=== PATIENT | female | born 1970 | race Two or more races ===

== ENCOUNTER 2025-04-18 07:53 | Emergency (ER) | payer MEDICAID, SELFPAY ==
[2025-04-18 07:55] VITALS: BMI 25.6
[2025-04-18 08:01] VITALS: BP 121/85; PULSE 91; RESP 18; TEMP 37.2; O2SAT 97
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
[2025-04-18] MEDS: DiphenhydrAMINE 25 MG CAPSULE 50 MG PO (09:55)
[2025-04-18] MEDS: FAMOTIDINE 20 MG TABLET 40 MG PO (09:55)
[2025-04-18] MEDS: predniSONE 20 MG TABLET 60 MG PO (09:55)
[2025-04-18 10:16] VITALS: BP 140/70; PULSE 99; RESP 18; TEMP 37.1; O2SAT 95
[2025-04-18 12:18] VITALS: BP 126/76; PULSE 86; RESP 20; TEMP 37.3; O2SAT 96
[2025-04-18 13:43] VITALS: BP 136/89; PULSE 78; RESP 16; TEMP 37.2; O2SAT 98
== END 2025-04-18 13:50 | disposition home or self-care (01) ==
PROVIDERS: Emergency Provider Emergency Medicine; PCP Family Medicine
DX: H02.844 Edema of left upper eyelid (principal); H02.841 Edema of right upper eyelid
CPT/HCPCS: 99282; J7512; A9270

== ENCOUNTER 2025-04-22 05:09 | Emergency (ER) | payer MEDICAID, SELFPAY ==
[2025-04-22 05:15] VITALS: BMI 20.3
[2025-04-22 05:34] VITALS: BP 111/64; PULSE 67; RESP 18; TEMP 36.9
--- NOTE | 2025-04-22 05:38 | XR_ITS ---
Examination: Ultrasound soft tissue forehead TECHNIQUE: Grayscale sonographic soft tissue forehead Date and time: April 22, 2025 0724 hours INDICATIONS: Soft tissue swelling involving the forehead FINDINGS: Tubular fluid-filled structure with internal debris in the soft tissue at the area of concern 5.6 x 1.5 x 8.2 cm IMPRESSION: Tubular fluid-filled structure with internal debris in the soft tissue at the area of concern as above, differential would include hematoma, soft tissue abscess, clinical correlation advised
--- NOTE | 2025-04-22 05:39 | EDRME_ITS ---
Rapid Medical Screening Exam [facility] Arrival date/time: 04/22/25 05:09 54F with history of drug use presents to ED with painful swelling/area of fluctuance on head. Patient was here several days ago for this and was diagnosed as an allergic reaction. Chief Complaint: General Adult/Misc Complain Vital signs: Vital Signs Temperature 98.4 F 04/22/25 05:34 Pulse Rate 67 04/22/25 05:34 Respiratory Rate 18 04/22/25 05:34 Blood Pressure 111/64 04/22/25 05:34 Oxygen Delivery Method Room Air 04/22/25 05:34
--- NOTE | 2025-04-22 06:53 | PD.EDRME ---
Rapid Medical Screening Exam RME Arrival date/time: 04/22/25 05:09 04/22/25 05:09 54F with history of drug use presents to ED with painful swelling/area of fluctuance on head. Patient was here several days ago for this and was diagnosed as an allergic reaction. Chief Complaint: General Adult/Misc Complain Time Seen by Provider: 04/22/25 06:13 Vital signs: Vital Signs Temperature 98.4 F 04/22/25 05:34 Pulse Rate 67 04/22/25 05:34 Respiratory Rate 18 04/22/25 05:34 Blood Pressure 111/64 04/22/25 05:34 Oxygen Delivery Method Room Air 04/22/25 05:34 RME Narrative: 04/22/25 05:09 54F with history of drug use presents to ED with painful swelling/area of fluctuance on head. Patient was here several days ago for this and was diagnosed as an allergic reaction.
[2025-04-22 07:41] LABS: Lactate (Lactic Acid) 0.5 mMol/L (0.4-2.0)
[2025-04-22 07:47] LABS: Basophils % (Auto) 0 % (0-2.5); Eosinophils % (Auto) 0 % (0-10); Hematocrit 35.2 % (36.0-46.0); Hemoglobin 12.9 g/dL (12.0-16.0); Immature Granulocytes % (Auto) 0 % (0-0); Immature Granulocytes Auto 0.03 Thou/mm3 (0.00-0.00); Lymphocytes # (Auto) 3.2 Thou/mm3 (1.0-4.8); Lymphocytes % (Auto) 29 % (10-50); Mean Corpuscular HGB Conc 36.6 g/dl (31.0-37.0); Mean Corpuscular Hemoglobin 32.5 pg (25.0-35.0); Mean Corpuscular Volume 89 fL (80-100); Monocytes # (Auto) 1.1 Thou/mm3 (0.0-0.8); Monocytes % (Auto) 10 % (0-12); Neutrophils # (Auto) 6.8 Thou/mm3 (1.8-7.7); Neutrophils % (Auto) 61 % (37-80); Nucleated Red Blood Cell % 0 /100 WBC (0); Platelet Count 236 Thou/mm3 (140-440); Red Blood Count 3.97 Miln/mm3 (4.00-5.20); White Blood Count 11.1 Thou/mm3 (3.6-11.0)
[2025-04-22 08:13] LABS: Alanine Aminotransferase 32 U/L (10-49); Albumin, Serum 4.3 gm/dL (3.5-5.0); Albumin/Globulin Ratio 1.5 (1.2-2.2); Alkaline Phosphatase 89 U/L (46-116); Anion Gap 11 (7-16); BUN/Creatinine Ratio 17 Ratio (12-20); Bilirubin,Total 1.2 mg/dL (0.3-1.2); Blood Urea Nitrogen 15 mg/dL (9-23); C-Reactive Protein 5.5 mg/dL (0.0-0.9); Calcium 9.3 mg/dL (8.3-10.6); Calcium (Corrected) 9.3 mg/dL (8.5-10.1); Carbon Dioxide 26.4 mMol/L (20.0-31.0); Chloride 100 mMol/L (98-107); Creatinine (Component) 0.9 mg/dL (0.6-1.3); Estimated Creatinine Clearance 58.8 mL/min (>60); Globulin 2.8 gm/dL (2.3-3.5); Glucose 93 mg/dL (74-106); Osmolality,Calculated 274 (275-295); Potassium 3.5 mMol/L (3.4-5.1); Procalcitonin 0.22 ng/ml (0.0-0.49); Sodium 137 mMol/L (136-145); Total Protein 7.1 gm/dL (5.7-8.2); eGFR > 60 See Note
[2025-04-22 08:15] LABS: Sed Rate (ESR) 27 mm/hr (0-30)
--- NOTE | 2025-04-22 08:18 | PC.NURSE ---
ACCOUNTS SUPERVISOR ATTEMPTED TO CALL PT BACK TO ASSIGNED ROOM. PT NOT FOUND IN OR OUTSIDE OF LOBBY X1.
[2025-04-22 08:57] LABS: HCG,Qualitative Serum Positive
--- NOTE | 2025-04-22 09:58 | EDNOTE_ITS ---
ED General RME/HPI General Chief complaint: General Adult/Misc Complain Stated complaint: PAIN SWELLING TO FOREHEAD Time Seen by Provider: 04/22/25 06:13 Arrival date/time: 04/22/25 05:09 Limitations: no limitations RME / HPI RME / HPI narrative: 04/22/25 05:09 54F with history of drug use presents to ED with painful swelling/area of fluctuance on head. Patient was here several days ago for this and was diagnosed as an allergic reaction. DR. COX MAIN ED EVALUATION: 54 year old female with past medical history significant for brain surgery at [place] presents to the Emergency Department with complaint of forehead swelling. She was seen on 04/18/25 for the same symptoms and discharged home with an allergic reaction. No other symptoms reported at this time. Related Data Previous Rx's ?Medication ?Instructions ?Recorded docusate sodium 100 mg capsule 100 mg PO TID #30 caps 07/07/23 (Colace) gabapentin 100 mg capsule 100 mg PO TID PRN pain #30 c aps 07/07/23 hydrocortisone 2.5 % topical cream 1 applic AK QDAY AK N hemorrhoids 07/07/23 with perineal applicator #30 grams (Anusol-HC) ibuprofen 600 mg tablet 600 mg PO TID PRN pain #30 t abs 12/13/23 ibuprofen 600 mg tablet 600 mg PO Q6H #30 tabs 12/16 diphenhydramine HCl 25 mg capsule 50 mg (2 x 25 mg) PO TID PRN 04/18/25 (Allergy (diphenhydramine)) allergic reaction #20 caps prednisone 50 mg tablet 50 mg PO QDAY #4 tabs Allergies Allergy/AdvReac Type Severity Reaction Status Date / Time No Known Allergies Allergy Verified 04/22/25 05:28 Review of Systems Review of Systems Systems Reviewed: All systems reviewed, normal except as documented Past Medical History Past Medical History NEUROLOGIC: Positive Head Trauma and Traumatic Brain Injury RESPIRATORY: Positive Asthma ENT: Positive Head Trauma OTHER HISTORY: Positive Blood Transfusions Social History SMOKING STATUS: Never smoker SUBSTANCE USE: does not use ALCOHOL: Never ED Exam General Limitations: Present no limitations General appearance: Present alert and in no apparent distress Head Head exam: Present other (There is a large incision behind the hairline with a big defect on the mid to right forehead area; area feels soft and enoc fluctuates; there is minimal erythema.) Eye Eye exam: Present normal appearance, PERRL and EOMI ENT ENT exam: Present normal exam, normal oropharynx and mucous membranes moist Neck Neck exam: Present normal inspection, full ROM and trachea midline Chest Chest inspection: Present normal inspection and symmetric chest wall rise Respiratory Respiratory exam: Present normal lung sounds bilaterally Cardiovascular Cardiovascular exam: Present regular rate, normal rhythm and normal heart sounds Abdominal Exam Abdominal exam: Present soft and normal bowel sounds Extremities Exam Extremities exam: Present normal inspection and full ROM Back Exam Back exam: Present normal inspection and full ROM Neurological Exam Neurological exam: Present alert, oriented X3 and CN II-XII intact Psychiatric Psychiatric exam: Present normal affect and normal mood Skin Skin exam: Present warm, dry, intact and normal color Course Quality Measures none Orders Category Date Time Status 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 Stat Cons 04/22/25 12:43 Active Transfer to another facility [Transfer/Discharge] Stat Discharge 04/22/25 12:[address] head/brain wo con Stat Exams 04/22/25 10:38 Completed US OB <= 14 weeks fetus Stat Exams 04/22/25 10:55 Completed US pelvic complete Stat Exams 04/22/25 10:45 Ordered US soft tissue head neck Stat Exams 04/22/25 05:38 Completed Beta HCG,Quantitative Stat Lab 04/22/25 07:20 Completed Blood Culture (Lab) Stat Lab 04/22/25 07:10 Received CBC Stat Lab 04/22/25 07:20 Completed CRP [C-Reactive Protein] Stat Lab 04/22/25 07:20 Completed Comprehensive Metabolic Panel Stat Lab 04/22/25 07:20 Completed Drug Screen,Urine Stat Lab 04/22/25 14:32 Completed ESR [Sed Rate (ESR)] Stat Lab 04/22/25 07:20 Completed HCG,Qualitative Serum Stat Lab 04/22/25 07:20 Completed Lactate (Lactic Acid) Stat Lab 04/22/25 07:20 Completed Procalcitonin Stat Lab 04/22/25 07:20 Completed Urinalysis Stat Lab 04/22/25 14:32 Completed Vancomycin/Ns 1 gm Ivpb 200 ml Med 04/22/25 12:55 Discontinued IV X1 cefTRIAXone [Rocephin] 2 gm Med 04/22/25 10:34 Discontinued SODIUM CHLORIDE 0.9% (Popper) [Ns 0.9% (P)] 50 ml IV X1 metroNIDAZOLE/NS 500 MG IVPB [Flagyl 500 mg IV] Med 04/22/25 12:56 Discontinued 500 mg in 100 ml IV X1 Vital Signs Vital signs: Vital Signs Temperature 98.4 F 04/22/25 05:34 Pulse Rate 67 04/22/25 05:34 Respiratory Rate 18 04/22/25 05:34 Blood Pressure 111/64 04/22/25 05:34 Oxygen Delivery Method Room Air 04/22/25 05:34 Critical Care Time Critical Care Time Critical Care Time: Yes Total Critical Care Time (min.): 45 Attestation: The high probability of sudden, clinically significant deterioration in the patient?s condition required the highest level of my preparedness to intervene urgently. The services I provided to this patient were to treat and/or prevent clinically significant deterioration. Services included the following: chart data review, reviewing nursing notes and/or old charts, documentation time, cosmetic sales consultant collaboration regarding findings and treatment options, medication orders and management, direct patient care, vital sign assessments and ordering, interpreting and reviewing diagnostic studies and lab tests. Aggregate critical care time includes only time during which I was engaged in work directly related to the patient?s care, as described above, whether at bedside or elsewhere in the Emergency Department. It did not include time spent performing other reported procedures or the services of residents, students, nurses or physician assistants. Discharge Plan Plan Patient Disposition: [facility] Facility Pt Being Transferred to: Other-Specify in comment Service Needed for Transfer: Neurology Discharge Disposition comment: [facility] Prescriptions/Referrals Prescriptions/Med Rec: No Action ibuprofen 600 mg tablet 600 mg PO TID PRN (Reason: pain) Qty: 30 0RF gabapentin 100 mg capsule 100 mg PO TID PRN (Reason: pain) Qty: 30 0RF docusate sodium [Colace] 100 mg capsule 100 mg PO TID Qty: 30 0RF hydrocortisone [Anusol-HC] 2.5 % cream with perineal applicator 1 applic AK QDAY PRN (Reason: hemorrhoids) Qty: 30 0RF ibuprofen 600 mg tablet 600 mg PO Q6H Qty: 30 0RF prednisone 50 mg tablet 50 mg PO QDAY Qty: 4 0RF diphenhydramine HCl [Allergy (diphenhydramine)] 25 mg capsule 50 mg PO TID PRN (Reason: allergic reaction) Qty: 20 0RF Referrals: Randall Briseno MD [Primary Care Provider] - In 1 week Problem List Clinical Impression: Brain abscess Patient/Caregiver Discharge Instructions Print Language: Vietnamese Stand Alone Forms: Francisca Award Info., Patient Portal Info Letter MDM Narrative [facility] hospital course: I, Ana Odonnell, am scribing for and in the presence of Dr. Cox. Clinical Information Provided by patient Medical Records Reviewed [facility] Meds/Rx Considered, not Ordered None Labs/Rad/Tests considered, not Ordered None Chronic Illness/Social Conditions Add or document further as needed: brain surgery at [place] EKG EKG not done Imaging Radiology reports / interpretation(s): Procedure(s): US soft tissue head neck Accession Number(s): [id number] cc: Randall Briseno MD; Francisco Baltazar MD; Natanael Garduno PA-C~ Examination: Ultrasound soft tissue forehead TECHNIQUE: Grayscale sonographic soft tissue forehead Date and time: April 22, 2025 0724 hours INDICATIONS: Soft tissue swelling involving the forehead FINDINGS: Tubular fluid-filled structure with internal debris in the soft tissue at the area of concern 5.6 x 1.5 x 8.2 cm IMPRESSION: Tubular fluid-filled structure with internal debris in the soft tissue at the area of concern as above, differential would include hematoma, soft tissue abscess, clinical correlation advised Dictated By: Francisco Baltazar MD Procedure(s): US OB <= 14 weeks fetus Accession Number(s): [id number] cc: Tima Cox MD; Randall Briseno MD; Francisco Baltazar MD~ Examination: Complete OB ultrasound, less than 14 weeks, transabdominal Date and time of exam: April 22, 2025 1141 hrs. Indications: Pelvic pain and vaginal bleeding today Technique: Obstetrical ultrasound images less than 14 weeks performed via transabdominal imaging Findings: Uterus 6.0 cm, endometrial sign 0.7 cm No uterine mass or intrauterine gestation Right ovary 2.6 cm arterial flow. Left ovary 2.3 cm arterial flow Impression: Negative examination Dictated By: Francisco Baltazar MD ------- Procedure(s): CT head/brain wo con Accession Number(s): [id number] cc: Tima Cox MD; Randall Briseno MD; Francisco Baltazar MD~ Examination: CT brain head without contrast. 2-D sagittal coronal reconstructions Date and time of exam:April 22, 2025 1116 hrs. Comparison November 25, 2017 CTDI: vol (mGy):47 DLP: (mGycm):955 Indications: Head pain forehead swelling 2 weeks Technique: Multiple CT axial sections of the brain have been obtained, 5 mm slice thickness. Contrast has not been administered. 2-D sagittal, coronal reconstructions have been obtained Low dose protocols were performed. One or more of the following dose reduction techniques were used; automated exposure control, adjustment of the mA and/or KV according to patient size, use of iterative reconstruction technique. Findings: Again noted large frontal craniotomy defect with prominent left frontal encephalomalacia and ipsilateral ventricular dilatation There now is extra-axial space anterior to the frontal lobes is on this study, axial image 22, measuring up to 17 mm in thickness with fluid density Acute hemorrhage is not identified No midline shift Also soft tissue swelling anterior to the craniotomy defect Impression: Findings most consistent with fluid infection at the frontal craniotomy defect contiguous with the frontal horns with associated forehead soft tissue swelling Recommend immediate transfer to the surgical Hospital site where the patient surgery was performed for treatment of this probable extra-axial abscess Dictated By: Francisco Baltazar MD Medication Administration(s) Medication Administration History Discontinued Medications Ceftriaxone Sodium 2 gm/ (Sodium Chloride) 50 mls @ 100 mls/hr IV X1 ONE Stop: 04/22/25 11:03 Last Infusion: 04/22/25 13:36 Dose: Infused Documented By: Admin: 04/22/25 13:06 Dose: 100 mls/hr Documented By: EF Vancomycin/Sodium Chloride (Vancomycin/Ns 1 Gm Ivpb) 200 mls @ 120 mls/hr IV X1 ONE Stop: 04/22/25 14:34 Last Infusion: 04/22/25 15:21 Dose: Infused Documented By: Admin: 04/22/25 13:40 Dose: 120 mls/hr Documented By: EF Metronidazole (Flagyl 500 Mg Iv) 500 mg in 100 mls @ 100 mls/hr IV X1 ONE Stop: 04/22/25 13:55 Last Infusion: 04/22/25 14:40 Dose: Infused Documented By: Admin: 04/22/25 13:40 Dose: 100 mls/hr Documented By: EF Consultations/Discussions re: Management Consult #1: Date/time: 04/22/25 4:26 pm Physician, specialty, service, details: Discussed test HPI, PMHx, lab, radiology results and/or management with [facility].Accepts patient for transfer. Diagnosis Differential diagnosis: allergic reaction, cellulitis, edema Most likely dx, and/or detailed dx discussion: Brain abscess Dispositon Disposition: Transfer Disposition comments: [facility]
--- NOTE | 2025-04-22 10:38 | XR_ITS ---
Examination: CT brain head without contrast. 2-D sagittal coronal reconstructions Date and time of exam:April 22, 2025 1116 hrs. Comparison November 25, 2017 CTDI: vol (mGy):47 DLP: (mGycm):955 Indications: Head pain forehead swelling 2 weeks Technique: Multiple CT axial sections of the brain have been obtained, 5 mm slice thickness. Contrast has not been administered. 2-D sagittal, coronal reconstructions have been obtained Low dose protocols were performed. One or more of the following dose reduction techniques were used; automated exposure control, adjustment of the mA and/or KV according to patient size, use of iterative reconstruction technique. Findings: Again noted large frontal craniotomy defect with prominent left frontal encephalomalacia and ipsilateral ventricular dilatation There now is extra-axial space anterior to the frontal lobes is on this study, axial image 22, measuring up to 17 mm in thickness with fluid density Acute hemorrhage is not identified No midline shift Also soft tissue swelling anterior to the craniotomy defect Impression: Findings most consistent with fluid infection at the frontal craniotomy defect contiguous with the frontal horns with associated forehead soft tissue swelling Recommend immediate transfer to the surgical Hospital site where the patient surgery was performed for treatment of this probable extra-axial abscess
[2025-04-22 10:39] VITALS: BP 107/70; PULSE 81; RESP 17; TEMP 37.4; O2SAT 99
--- NOTE | 2025-04-22 10:55 | XR_ITS ---
Examination: Complete OB ultrasound, less than 14 weeks, transabdominal Date and time of exam: April 22, 2025 1141 hrs. Indications: Pelvic pain and vaginal bleeding today Technique: Obstetrical ultrasound images less than 14 weeks performed via transabdominal imaging Findings: Uterus 6.0 cm, endometrial sign 0.7 cm No uterine mass or intrauterine gestation Right ovary 2.6 cm arterial flow. Left ovary 2.3 cm arterial flow Impression: Negative examination
[2025-04-22 11:30] LABS: Beta HCG,Quantitative 4 mIU/mL (<5.0)
[2025-04-22] MEDS: cefTRIAXone 2 GM in SODIUM CHLORIDE 0.9% (Popper) 50 ML IV (13:06)
[2025-04-22 13:34] VITALS: BP 141/86; PULSE 88; RESP 16; TEMP 37.3; O2SAT 100
[2025-04-22] MEDS: VANCOMYCIN/NS 1 GM IVPB 200 ML IV (13:40)
[2025-04-22] MEDS: metroNIDAZOLE/NS 500 MG IVPB 500 MG/100 ML BAG 100 MG IV (13:40)
[2025-04-22 14:46] LABS: Collection Type, Urine Clean Catch
[2025-04-22 14:59] LABS: Amorphous Crystals,Urine Present (Absent); Bacteria,Urine Rare; Bilirubin,Urine Negative (Negative); Blood,Urine Negative (Negative); Clarity,Urine Turbid (Clear/Hazy); Color,Urine Yellow (Lt Yel-Yel); Glucose, Urine Negative (Negative); Ketones,Urine Negative (Negative); Leukocyte Esterase,Urine Positive (Negative); Nitrite,Urine Negative (Negative); PH,Urine 6.5 (5.0-7.0); Protein,Urine Negative (Neg - Trace); RBC,Urine 3 /hpf (0-3); Specific Gravity,Urine 1.022 (1.001-1.035); Squamous Epithelial Cell,Urine 2 /hpf (0-5); WBC,Urine 5 /hpf (0-5)
[2025-04-22 15:15] LABS: Amphetamine/Methamp Scrn,U Positive (Negative); Barbiturate Screen,Urine Negative (Negative); Benzodiazepines Screen,Urine Negative (Negative); Benzoylecgonine Screen, Ur Negative (Negative); Fentanyl Screen,Urine Negative (Negative); Opiate Screen,Urine Negative (Negative); THC Screen,Urine Positive (Negative)
--- NOTE | 2025-04-22 15:47 | PC.CM ---
Addendum entered by Luis Kapoor RN 04/22/25 16:14: 1414-Notified [facility] and [facility] that patient had been accepted at another facility at this time. Addendum entered by Luis Kapoor RN 04/22/25 16:07: 1405- Patient accepted at [facility] by Dr. Flores, Neurology. Report to be called at [phone]. DELFINO Plata CN informed and provided with information for report. Addendum entered by Luis Kapoor RN 04/22/25 15:53: 1550- Spoke with REMIGIO Sanders at [facility], she is reviewing patient's reports and presenting case to their team, she will call back with an update. Addendum entered by Luis Kapoor RN 04/22/25 15:51: 1500- Dr. Godinez reported he had spoken to [facility] and provided clinical information on patient for review. Addendum entered by Luis Kapoor RN 04/22/25 15:50: 1300- Spoke with REMIGIO Herzog at [facility], provided clinical information and recent vital signs, she requested images to be pushed via [email or web address], they were sent per her request. She was transferred to ER for report from Dr. Godinez. Original Note: 1242- Received call from ER CN requesting transfer for Neurosurgery, patient has a brain abcess, histroy of craniotomy. Clinical packets sent to [facility], [facility], and [facility].
[2025-04-22 16:57] VITALS: BP 149/78; PULSE 86; RESP 17; TEMP 36.8; O2SAT 98
--- NOTE | 2025-04-22 17:51 | PC.NURSE ---
attempted to call report for transfer no answer x2
--- NOTE | 2025-04-22 18:28 | PC.NURSE ---
attempted to call report again no answer
== END 2025-04-22 17:37 | disposition short-term general hospital (02) ==
PROVIDERS: Nurse Practitioner Primary Care; Emergency Provider Family Medicine; PCP Family Medicine
DX: G06.0 Intracranial abscess and granuloma (principal); R10.2 Pelvic and perineal pain; N93.9 Abnormal uterine and vaginal bleeding, unspecified; Z75.1 Person awaiting admission to adequate facility elsewhere
CPT/HCPCS: 36415; 70450; 76536; 76801; 80053; 80307; 81001; 83605; 84145; 84702; 84703; 85025; 85652; 86140; 87040; 96365; 96366; 96367; 96368; 99291; J0696; J3370; J3490; J7050; J1836

== ENCOUNTER 2025-05-26 22:34 | Inpatient (IN) | payer MEDICAID, SELFPAY ==
[2025-05-26 12:00] VITALS: PULSE 92; RESP 19; RESP 98
[2025-05-26 22:40] VITALS: BP 100/61; PULSE 86; RESP 16; TEMP 36.4; O2SAT 98
[2025-05-26 22:56] VITALS: PULSE 86
[2025-05-27] VITALS (8 sets, daily range): BP systolic 104–139; BP diastolic 65–84; PULSE 77–107; RESP 17–95; TEMP 36.1–37.4; O2SAT 97–100; BMI 22.3; BMI 12.0
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
[2025-05-27] MEDS: STERILE WATER IV ×5 (04:31→22:09)
[2025-05-27] MEDS: SODIUM CHLORIDE IV ×5 (04:31→22:09)
[2025-05-27] MEDS: PENICILLIN POT IV ×5 (04:31→22:09)
[2025-05-27] MEDS: SODIUM CHLORIDE 1 GM TABLET 3 GM PO ×3 (05:48→22:12)
[2025-05-27 06:09] LABS: Basophils # (Auto) 0.0 Thou/mm3 (0.0-0.2); Basophils % (Auto) 1 % (0-2.5); Eosinophils # (Auto) 0.0 Thou/mm3 (0.0-0.5); Eosinophils % (Auto) 1 % (0-10); Hematocrit 28.7 % (36.0-46.0); Hemoglobin 9.9 g/dL (12.0-16.0); Immature Granulocytes Auto 0.01 Thou/mm3 (0.00-0.00); Lymphocytes # (Auto) 1.4 Thou/mm3 (1.0-4.8); Lymphocytes % (Auto) 36 % (10-50); Mean Corpuscular HGB Conc 34.5 g/dl (31.0-37.0); Mean Corpuscular Hemoglobin 31.2 pg (25.0-35.0); Mean Corpuscular Volume 91 fL (80-100); Monocytes # (Auto) 0.5 Thou/mm3 (0.0-0.8); Monocytes % (Auto) 12 % (0-12); Neutrophils # (Auto) 1.9 Thou/mm3 (1.8-7.7); Neutrophils % (Auto) 50 % (37-80); Nucleated Red Blood Cell # 0.00 Thou/mm3 (0.00-0.00); Nucleated Red Blood Cell % 0 /100 WBC (0); Platelet Count 230 Thou/mm3 (140-440); RDW Standard Deviation 52.1 fL (36.4-46.3); Red Blood Count 3.17 Miln/mm3 (4.00-5.20); White Blood Count 3.9 Thou/mm3 (3.6-11.0)
[2025-05-27 06:45] LABS: Alanine Aminotransferase 36 U/L (10-49); Albumin, Serum 3.7 gm/dL (3.5-5.0); Albumin/Globulin Ratio 1.3 (1.2-2.2); Alkaline Phosphatase 66 U/L (46-116); Anion Gap 10 (7-16); Aspartate Amino Transferase 32 U/L (0-34); BUN/Creatinine Ratio 36 Ratio (12-20); Bilirubin,Total 0.3 mg/dL (0.3-1.2); Blood Urea Nitrogen 18 mg/dL (9-23); Calcium 9.4 mg/dL (8.3-10.6); Calcium (Corrected) 9.6 mg/dL (8.5-10.1); Carbon Dioxide 23.4 mMol/L (20.0-31.0); Chloride 102 mMol/L (98-107); Creatinine (Component) 0.5 mg/dL (0.6-1.3); Estimated Creatinine Clearance 106.4 mL/min (>60); Globulin 2.8 gm/dL (2.3-3.5); Glucose 95 mg/dL (74-106); Magnesium 2.0 mg/dL (1.6-2.6); Osmolality,Calculated 272 (275-295); Phosphorous 3.3 mg/dL (2.4-5.1); Potassium 4.1 mMol/L (3.4-5.1); Sodium 135 mMol/L (136-145); Total Protein 6.5 gm/dL (5.7-8.2); eGFR > 60 See Note
--- NOTE | 2025-05-27 07:14 | PC.NURSE ---
Patient admitted to Telemetry room?278 from [facility] with ambulance personnel. Patient is alert but slow responses. Settled into bed with staff assist. ekg monitor established, sinus rhythm on the monitor. Full assessment completed see documentation. Patient?s vitals stable on admit. Call ruiz within reach and bed alarm for safety. Patient stable on admit. at bedside. Unable to obtain medication list and does not know her meds. states the pts aunt will know her meds. Will contact the aunt to bring in the pt med list today. Also, spoke to Dr. Vanegas, informed physician that I was unable to complete the med reconciliation. Physician states will try and talk to the family today. Will monitor further.
[2025-05-27] MEDS: VANCOMYCIN/D5W 1,250 MG IVPB 250 ML 120 MG IV ×2 (10:26→22:08)
[2025-05-27] MEDS: ENOXAPARIN SOD INJ 40 MG/0.4 ML SYRINGE SC (10:27)
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
--- NOTE | 2025-05-27 13:36 | PC.SS ---
Patient is a 54YO female, reason visit: NEUROSURGERY FOR BRAIN ABSCESS. Information for initial assessment provided by patient's aunt Judith Villarreal . Judith stated she is patient's primary medical surrogate decision maker. She explained [place]oused [place] [address] Patient is independent with completing ADLs and ambulation. Patient does not have a PCP. Judith is requesting patient discharge to [facility], SNF. However, patient only has managed [employer]. Transportation will be needed. Discharge plan: Pending Next of kin: Aunt Judith Villarreal, .
[2025-05-28] VITALS (7 sets, daily range): BP systolic 110–133; BP diastolic 66–71; PULSE 75–105; RESP 13–95; TEMP 36–36.9; O2SAT 97–99; BMI 22.3
[2025-05-28] MEDS: SODIUM CHLORIDE IV ×6 (01:55→21:44)
[2025-05-28] MEDS: STERILE WATER IV ×6 (01:55→21:44)
[2025-05-28] MEDS: PENICILLIN POT IV ×6 (01:55→21:44)
[2025-05-28] MEDS: SODIUM CHLORIDE 1 GM TABLET 3 GM PO ×3 (05:47→21:44)
[2025-05-28 06:39] LABS: Alanine Aminotransferase 33 U/L (10-49); Albumin, Serum 3.8 gm/dL (3.5-5.0); Albumin/Globulin Ratio 1.5 (1.2-2.2); Alkaline Phosphatase 64 U/L (46-116); Anion Gap 11 (7-16); Aspartate Amino Transferase 28 U/L (0-34); BUN/Creatinine Ratio 24 Ratio (12-20); Bilirubin,Total 0.4 mg/dL (0.3-1.2); Blood Urea Nitrogen 12 mg/dL (9-23); Calcium 9.4 mg/dL (8.3-10.6); Calcium (Corrected) 9.6 mg/dL (8.5-10.1); Carbon Dioxide 22.0 mMol/L (20.0-31.0); Chloride 100 mMol/L (98-107); Creatinine (Component) 0.5 mg/dL (0.6-1.3); Estimated Creatinine Clearance 106.4 mL/min (>60); Globulin 2.6 gm/dL (2.3-3.5); Glucose 99 mg/dL (74-106); Magnesium 1.9 mg/dL (1.6-2.6); Osmolality,Calculated 266 (275-295); Phosphorous 3.3 mg/dL (2.4-5.1); Potassium 4.0 mMol/L (3.4-5.1); Sodium 133 mMol/L (136-145); Total Protein 6.4 gm/dL (5.7-8.2); eGFR > 60 See Note
[2025-05-28 06:45] LABS: Basophils # (Auto) 0.0 Thou/mm3 (0.0-0.2); Basophils % (Auto) 1 % (0-2.5); Eosinophils # (Auto) 0.1 Thou/mm3 (0.0-0.5); Eosinophils % (Auto) 1 % (0-10); Hematocrit 25.6 % (36.0-46.0); Hemoglobin 8.9 g/dL (12.0-16.0); Immature Granulocytes Auto 0.01 Thou/mm3 (0.00-0.00); Lymphocytes # (Auto) 1.5 Thou/mm3 (1.0-4.8); Lymphocytes % (Auto) 38 % (10-50); Mean Corpuscular HGB Conc 34.8 g/dl (31.0-37.0); Mean Corpuscular Hemoglobin 32.0 pg (25.0-35.0); Mean Corpuscular Volume 92 fL (80-100); Monocytes # (Auto) 0.4 Thou/mm3 (0.0-0.8); Monocytes % (Auto) 11 % (0-12); Neutrophils # (Auto) 2.0 Thou/mm3 (1.8-7.7); Neutrophils % (Auto) 50 % (37-80); Nucleated Red Blood Cell # 0.00 Thou/mm3 (0.00-0.00); Nucleated Red Blood Cell % 0 /100 WBC (0); Platelet Count 227 Thou/mm3 (140-440); RDW Standard Deviation 52.9 fL (36.4-46.3); Red Blood Count 2.78 Miln/mm3 (4.00-5.20); White Blood Count 4.0 Thou/mm3 (3.6-11.0)
--- NOTE | 2025-05-28 09:13 | PC.RT ---
PASRR Lvl 1 cleared and closed out.
[2025-05-28] MEDS: VANCOMYCIN/D5W 1,250 MG IVPB 250 ML 120 MG IV ×2 (09:14→22:31)
[2025-05-28] MEDS: ENOXAPARIN SOD INJ 40 MG/0.4 ML SYRINGE SC (09:14)
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
[2025-05-28 22:18] LABS: Vancomycin,Trough 18.8 mcg/mL (5.0-10.0)
[2025-05-29] VITALS: BP 115/76; PULSE 83; PULSE 85; RESP 16; TEMP 36.6; O2SAT 100
[2025-05-29] MEDS: SODIUM CHLORIDE IV ×6 (01:59→21:53)
[2025-05-29] MEDS: STERILE WATER IV ×6 (01:59→21:53)
[2025-05-29] MEDS: PENICILLIN POT IV ×6 (01:59→21:53)
[2025-05-29 04:00] VITALS: BP 136/80; PULSE 84; RESP 18; TEMP 35.9; O2SAT 98
[2025-05-29] MEDS: SODIUM CHLORIDE 1 GM TABLET 3 GM PO ×3 (05:53→21:54)
[2025-05-29 06:00] VITALS: BMI 21.7
[2025-05-29 07:04] LABS: Alanine Aminotransferase 32 U/L (10-49); Albumin, Serum 3.8 gm/dL (3.5-5.0); Albumin/Globulin Ratio 1.5 (1.2-2.2); Alkaline Phosphatase 64 U/L (46-116); Anion Gap 12 (7-16); Aspartate Amino Transferase 29 U/L (0-34); BUN/Creatinine Ratio 24 Ratio (12-20); Bilirubin,Total 0.4 mg/dL (0.3-1.2); Blood Urea Nitrogen 12 mg/dL (9-23); Calcium 9.1 mg/dL (8.3-10.6); Calcium (Corrected) 9.3 mg/dL (8.5-10.1); Carbon Dioxide 22.2 mMol/L (20.0-31.0); Chloride 100 mMol/L (98-107); Creatinine (Component) 0.5 mg/dL (0.6-1.3); Estimated Creatinine Clearance 106.4 mL/min (>60); Globulin 2.6 gm/dL (2.3-3.5); Glucose 99 mg/dL (74-106); Magnesium 1.4 mg/dL (1.6-2.6); Osmolality,Calculated 267 (275-295); Phosphorous 3.2 mg/dL (2.4-5.1); Potassium 3.8 mMol/L (3.4-5.1); Sodium 134 mMol/L (136-145); Total Protein 6.4 gm/dL (5.7-8.2); eGFR > 60 See Note
[2025-05-29 08:00] VITALS: BP 139/69; PULSE 79; PULSE 88; RESP 22; TEMP 36.1; O2SAT 100
[2025-05-29 08:10] LABS: Basophils # (Auto) 0.0 Thou/mm3 (0.0-0.2); Basophils % (Auto) 0 % (0-2.5); Eosinophils # (Auto) 0.1 Thou/mm3 (0.0-0.5); Eosinophils % (Auto) 1 % (0-10); Lymphocytes # (Auto) 1.1 Thou/mm3 (1.0-4.8); Mean Corpuscular HGB Conc 33.0 g/dl (31.0-37.0); Monocytes # (Auto) 0.7 Thou/mm3 (0.0-0.8); Nucleated Red Blood Cell # 0.00 Thou/mm3 (0.00-0.00); Nucleated Red Blood Cell % 0 /100 WBC (0)
[2025-05-29 08:12] LABS: Hematocrit 27.0 % (36.0-46.0); Hemoglobin 8.9 g/dL (12.0-16.0); Immature Granulocytes Auto 0.03 Thou/mm3 (0.00-0.00); Lymphocytes % (Auto) 13 % (10-50); Mean Corpuscular Hemoglobin 29.6 pg (25.0-35.0); Mean Corpuscular Volume 90 fL (80-100); Monocytes % (Auto) 7 % (0-12); Neutrophils # (Auto) 7.0 Thou/mm3 (1.8-7.7); Neutrophils % (Auto) 79 % (37-80); Platelet Count 198 Thou/mm3 (140-440); RDW Standard Deviation 52.2 fL (36.4-46.3); Red Blood Count 3.01 Miln/mm3 (4.00-5.20); White Blood Count 8.9 Thou/mm3 (3.6-11.0)
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
--- NOTE | 2025-05-29 09:36 | PC.SS ---
Follow up note: Pt is on IV antibiotic. Pt will require IV antibiotic at d/c, IV Vanko 1 Xday until 06-25-25 (quantity is to be determine). IV penicillin will be completed tomorrow. Pt is possible dc to SNF.
[2025-05-29] MEDS: ENOXAPARIN SOD INJ 40 MG/0.4 ML SYRINGE SC (09:42)
[2025-05-29] MEDS: VANCOMYCIN/NS 1 GM IVPB 200 ML IV ×2 (09:42→21:53)
[2025-05-29 10:57] VITALS: BMI 21.8
[2025-05-29 12:00] VITALS: BP 122/67; PULSE 87; PULSE 89; RESP 17; TEMP 36.1; O2SAT 96
[2025-05-29] MEDS: POLYETHYLENE GLYCOL 17 GM PACKET PO (14:46)
[2025-05-29 15:52] VITALS: BMI 12.0
[2025-05-29 16:00] VITALS: BP 120/69; PULSE 84; PULSE 91; RESP 18; TEMP 36.4; O2SAT 97
[2025-05-29 20:00] VITALS: BP 140/81; PULSE 95; PULSE 97; RESP 19; TEMP 36.6; O2SAT 100
[2025-05-30] VITALS (8 sets, daily range): BP systolic 116–145; BP diastolic 51–91; PULSE 62–102; RESP 13–100; TEMP 36.2–36.9; O2SAT 99–100; BMI 11.0
[2025-05-30] MEDS: STERILE WATER IV ×6 (02:15→22:08)
[2025-05-30] MEDS: PENICILLIN POT IV ×6 (02:15→22:08)
[2025-05-30] MEDS: SODIUM CHLORIDE IV ×6 (02:15→22:08)
[2025-05-30] MEDS: SODIUM CHLORIDE 1 GM TABLET 3 GM PO ×3 (05:43→22:08)
[2025-05-30 06:24] LABS: Basophils # (Auto) 0.0 Thou/mm3 (0.0-0.2); Basophils % (Auto) 0 % (0-2.5); Eosinophils # (Auto) 0.0 Thou/mm3 (0.0-0.5); Eosinophils % (Auto) 1 % (0-10); Hematocrit 27.6 % (36.0-46.0); Hemoglobin 9.8 g/dL (12.0-16.0); Immature Granulocytes Auto 0.00 Thou/mm3 (0.00-0.00); Lymphocytes # (Auto) 1.1 Thou/mm3 (1.0-4.8); Lymphocytes % (Auto) 38 % (10-50); Mean Corpuscular HGB Conc 35.5 g/dl (31.0-37.0); Mean Corpuscular Hemoglobin 31.7 pg (25.0-35.0); Mean Corpuscular Volume 89 fL (80-100); Monocytes # (Auto) 0.4 Thou/mm3 (0.0-0.8); Monocytes % (Auto) 13 % (0-12); Neutrophils # (Auto) 1.4 Thou/mm3 (1.8-7.7); Neutrophils % (Auto) 48 % (37-80); Nucleated Red Blood Cell # 0.00 Thou/mm3 (0.00-0.00); Nucleated Red Blood Cell % 0 /100 WBC (0); Platelet Count 181 Thou/mm3 (140-440); RDW Standard Deviation 50.3 fL (36.4-46.3); Red Blood Count 3.09 Miln/mm3 (4.00-5.20)
[2025-05-30 06:28] LABS: Alanine Aminotransferase 37 U/L (10-49); Albumin, Serum 3.8 gm/dL (3.5-5.0); Albumin/Globulin Ratio 1.5 (1.2-2.2); Alkaline Phosphatase 68 U/L (46-116); Anion Gap 12 (7-16); Aspartate Amino Transferase 33 U/L (0-34); BUN/Creatinine Ratio 18 Ratio (12-20); Bilirubin,Total 0.4 mg/dL (0.3-1.2); Blood Urea Nitrogen 9 mg/dL (9-23); Calcium 9.3 mg/dL (8.3-10.6); Calcium (Corrected) 9.5 mg/dL (8.5-10.1); Carbon Dioxide 22.3 mMol/L (20.0-31.0); Chloride 103 mMol/L (98-107); Creatinine (Component) 0.5 mg/dL (0.6-1.3); Estimated Creatinine Clearance 101.7 mL/min (>60); Globulin 2.6 gm/dL (2.3-3.5); Glucose 94 mg/dL (74-106); Magnesium 1.5 mg/dL (1.6-2.6); Osmolality,Calculated 272 (275-295); Phosphorous 3.3 mg/dL (2.4-5.1); Potassium 3.8 mMol/L (3.4-5.1); Sodium 137 mMol/L (136-145); Total Protein 6.4 gm/dL (5.7-8.2); eGFR > 60 See Note
[2025-05-30 06:59] LABS: White Blood Count 2.9 Thou/mm3 (3.6-11.0)
[2025-05-30 08:32] LABS: Basophils # (Auto) 0.0 Thou/mm3 (0.0-0.2); Basophils % (Auto) 0 % (0-2.5); Eosinophils # (Auto) 0.0 Thou/mm3 (0.0-0.5); Eosinophils % (Auto) 1 % (0-10); Hematocrit 27.1 % (36.0-46.0); Hemoglobin 9.6 g/dL (12.0-16.0); Immature Granulocytes Auto 0.01 Thou/mm3 (0.00-0.00); Lymphocytes # (Auto) 1.0 Thou/mm3 (1.0-4.8); Lymphocytes % (Auto) 36 % (10-50); Mean Corpuscular HGB Conc 35.4 g/dl (31.0-37.0); Mean Corpuscular Hemoglobin 31.9 pg (25.0-35.0); Mean Corpuscular Volume 90 fL (80-100); Monocytes # (Auto) 0.4 Thou/mm3 (0.0-0.8); Monocytes % (Auto) 14 % (0-12); Neutrophils # (Auto) 1.3 Thou/mm3 (1.8-7.7); Neutrophils % (Auto) 48 % (37-80); Nucleated Red Blood Cell # 0.00 Thou/mm3 (0.00-0.00); Nucleated Red Blood Cell % 0 /100 WBC (0); Platelet Count 169 Thou/mm3 (140-440); RDW Standard Deviation 50.6 fL (36.4-46.3); Red Blood Count 3.01 Miln/mm3 (4.00-5.20)
[2025-05-30 09:08] LABS: White Blood Count 2.8 Thou/mm3 (3.6-11.0)
--- NOTE | 2025-05-30 09:54 | PC.NURSE ---
Talked to Dr. Andrews, contact precautions removed.
[2025-05-30] MEDS: ENOXAPARIN SOD INJ 40 MG/0.4 ML SYRINGE SC (09:59)
[2025-05-30] MEDS: POLYETHYLENE GLYCOL 17 GM PACKET PO (09:59)
[2025-05-30] MEDS: VANCOMYCIN/NS 1 GM IVPB 200 ML IV ×2 (10:06→22:27)
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
--- NOTE | 2025-05-30 13:56 | PC.SS ---
SS was informed pt is requirng Vancomycin 1 gram BID until 06/25. SS has expanded search for SNF to [address] [place] using [employer]. Pt is aware.
--- NOTE | 2025-05-30 14:26 | PC.SS ---
SS has also sent inquiry to [facility].
[2025-05-30 22:21] LABS: Vancomycin,Trough 13.8 mcg/mL (5.0-10.0)
[2025-05-31] VITALS (10 sets, daily range): BP systolic 109–150; BP diastolic 67–95; PULSE 75–110; RESP 17–98; TEMP 36.3–37.3; O2SAT 95–100
[2025-05-31] MEDS: STERILE WATER IV ×4 (02:10→14:50)
[2025-05-31] MEDS: PENICILLIN POT IV ×4 (02:10→14:50)
[2025-05-31] MEDS: SODIUM CHLORIDE IV ×4 (02:10→14:50)
[2025-05-31] MEDS: SODIUM CHLORIDE 1 GM TABLET 3 GM PO ×3 (05:40→21:30)
--- NOTE | 2025-05-31 06:34 | PC.NURSE ---
Wound Thursday and new would pictures obtained around midnight. Upon going to print the pictures a few minutes ago, only the head pictures were saved, the picture with the new open wound on the left buttocks was somehow not saved/it disappeared. Will inform day RN to obtain that photo today.
[2025-05-31 06:41] LABS: Basophils # (Auto) 0.0 Thou/mm3 (0.0-0.2); Basophils % (Auto) 1 % (0-2.5); Eosinophils # (Auto) 0.0 Thou/mm3 (0.0-0.5); Eosinophils % (Auto) 1 % (0-10); Hematocrit 27.7 % (36.0-46.0); Hemoglobin 9.8 g/dL (12.0-16.0); Immature Granulocytes Auto 0.00 Thou/mm3 (0.00-0.00); Lymphocytes # (Auto) 1.3 Thou/mm3 (1.0-4.8); Lymphocytes % (Auto) 39 % (10-50); Mean Corpuscular HGB Conc 35.4 g/dl (31.0-37.0); Mean Corpuscular Hemoglobin 31.9 pg (25.0-35.0); Mean Corpuscular Volume 90 fL (80-100); Monocytes # (Auto) 0.4 Thou/mm3 (0.0-0.8); Monocytes % (Auto) 11 % (0-12); Neutrophils # (Auto) 1.6 Thou/mm3 (1.8-7.7); Neutrophils % (Auto) 48 % (37-80); Nucleated Red Blood Cell # 0.00 Thou/mm3 (0.00-0.00); Nucleated Red Blood Cell % 0 /100 WBC (0); Platelet Count 192 Thou/mm3 (140-440); RDW Standard Deviation 50.8 fL (36.4-46.3); Red Blood Count 3.07 Miln/mm3 (4.00-5.20); White Blood Count 3.3 Thou/mm3 (3.6-11.0)
[2025-05-31 07:02] LABS: Alanine Aminotransferase 38 U/L (10-49); Albumin, Serum 3.9 gm/dL (3.5-5.0); Albumin/Globulin Ratio 1.4 (1.2-2.2); Alkaline Phosphatase 73 U/L (46-116); Anion Gap 11 (7-16); Aspartate Amino Transferase 39 U/L (0-34); BUN/Creatinine Ratio 16 Ratio (12-20); Bilirubin,Total 0.3 mg/dL (0.3-1.2); Blood Urea Nitrogen 8 mg/dL (9-23); Calcium 9.3 mg/dL (8.3-10.6); Calcium (Corrected) 9.4 mg/dL (8.5-10.1); Carbon Dioxide 20.7 mMol/L (20.0-31.0); Chloride 104 mMol/L (98-107); Creatinine (Component) 0.5 mg/dL (0.6-1.3); Estimated Creatinine Clearance 101.7 mL/min (>60); Globulin 2.7 gm/dL (2.3-3.5); Glucose 102 mg/dL (74-106); Magnesium 1.4 mg/dL (1.6-2.6); Osmolality,Calculated 270 (275-295); Phosphorous 3.3 mg/dL (2.4-5.1); Potassium 4.5 mMol/L (3.4-5.1); Sodium 136 mMol/L (136-145); Total Protein 6.6 gm/dL (5.7-8.2); eGFR > 60 See Note
[2025-05-31] MEDS: ENOXAPARIN SOD INJ 40 MG/0.4 ML SYRINGE SC (08:08)
[2025-05-31] MEDS: POLYETHYLENE GLYCOL 17 GM PACKET PO (08:09)
--- NOTE | 2025-05-31 08:36 | PC.SS ---
LOUIS has communicated with Kelsi at [facility] they have accepted and is aware pt possibly will not be able to stay with her aunt upon d/c from SNF. Kelsi explained she has started insurance authorization this morning. Insurance authorization is pending.
[2025-05-31] MEDS: VANCOMYCIN/NS 1 GM IVPB 200 ML IV ×2 (11:07→21:32)
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
[2025-06-01] VITALS (7 sets, daily range): BP systolic 116–140; BP diastolic 55–80; PULSE 69–108; RESP 15–18; TEMP 36.1–37.2; O2SAT 97–100; BMI 22.4; BMI 11.0
[2025-06-01] MEDS: SODIUM CHLORIDE 1 GM TABLET 3 GM PO ×3 (05:51→21:00)
[2025-06-01 06:04] LABS: Basophils # (Auto) 0.0 Thou/mm3 (0.0-0.2); Basophils % (Auto) 0 % (0-2.5); Eosinophils # (Auto) 0.0 Thou/mm3 (0.0-0.5); Eosinophils % (Auto) 1 % (0-10); Hematocrit 27.4 % (36.0-46.0); Hemoglobin 9.2 g/dL (12.0-16.0); Immature Granulocytes Auto 0.01 Thou/mm3 (0.00-0.00); Lymphocytes # (Auto) 1.2 Thou/mm3 (1.0-4.8); Lymphocytes % (Auto) 42 % (10-50); Mean Corpuscular HGB Conc 33.6 g/dl (31.0-37.0); Mean Corpuscular Hemoglobin 31.3 pg (25.0-35.0); Mean Corpuscular Volume 93 fL (80-100); Monocytes # (Auto) 0.4 Thou/mm3 (0.0-0.8); Monocytes % (Auto) 13 % (0-12); Neutrophils # (Auto) 1.2 Thou/mm3 (1.8-7.7); Neutrophils % (Auto) 44 % (37-80); Nucleated Red Blood Cell # 0.00 Thou/mm3 (0.00-0.00); Nucleated Red Blood Cell % 0 /100 WBC (0); Platelet Count 195 Thou/mm3 (140-440); RDW Standard Deviation 51.9 fL (36.4-46.3); Red Blood Count 2.94 Miln/mm3 (4.00-5.20)
[2025-06-01 06:05] LABS: White Blood Count 2.8 Thou/mm3 (3.6-11.0)
[2025-06-01 06:36] LABS: Alanine Aminotransferase 34 U/L (10-49); Albumin, Serum 3.8 gm/dL (3.5-5.0); Albumin/Globulin Ratio 1.5 (1.2-2.2); Alkaline Phosphatase 68 U/L (46-116); Anion Gap 11 (7-16); Aspartate Amino Transferase 28 U/L (0-34); BUN/Creatinine Ratio 20 Ratio (12-20); Bilirubin,Total 0.4 mg/dL (0.3-1.2); Blood Urea Nitrogen 10 mg/dL (9-23); Calcium 9.1 mg/dL (8.3-10.6); Calcium (Corrected) 9.3 mg/dL (8.5-10.1); Carbon Dioxide 22.0 mMol/L (20.0-31.0); Chloride 103 mMol/L (98-107); Creatinine (Component) 0.5 mg/dL (0.6-1.3); Estimated Creatinine Clearance 101.7 mL/min (>60); Globulin 2.6 gm/dL (2.3-3.5); Glucose 97 mg/dL (74-106); Magnesium 1.4 mg/dL (1.6-2.6); Osmolality,Calculated 270 (275-295); Phosphorous 3.3 mg/dL (2.4-5.1); Potassium 3.8 mMol/L (3.4-5.1); Sodium 136 mMol/L (136-145); Total Protein 6.4 gm/dL (5.7-8.2); eGFR > 60 See Note
--- NOTE | 2025-06-01 07:47 | PC.NURSE ---
MD made aware Mg 1.4 this Am. No orders given at this time.
--- NOTE | 2025-06-01 09:06 | PC.SS ---
Addendum entered by SHAINA Spivey 06/01/25 16:32: REMIGIO Baires and Patient's brother were notified on current status with insurance authorization pending to [facility]. Addendum entered by SHAINA Spivey 06/01/25 09:12: SS update: received call back from Kelsi from [facility] who informed that insurance authorization continues pending. Original Note: SS follow up: attempted contact with Kelsi with [facility] as the patient is pending insurance authorization with them. No answer, voicemail provided. Sent facility a message via [employer] requesting a call back.
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
[2025-06-01 09:50] LABS: Vancomycin,Trough 14.0 mcg/mL (5.0-10.0)
[2025-06-01] MEDS: Magnesium Sulfate 2 GM Ivpb 2 GM/50 ML BAG IV (10:10)
[2025-06-01] MEDS: POLYETHYLENE GLYCOL 17 GM PACKET PO (10:11)
[2025-06-01] MEDS: ENOXAPARIN SOD INJ 40 MG/0.4 ML SYRINGE SC (10:11)
[2025-06-01] MEDS: Vancomycin Inj 1,000 MG in SODIUM CHLORIDE 0.9% 250 ML 250 ML 150 MG IV ×2 (11:40→21:00)
[2025-06-02] VITALS (13 sets, daily range): BP systolic 126–144; BP diastolic 62–82; PULSE 84–112; RESP 16–20; TEMP 36.7–37.4; O2SAT 97–100; BMI 21.9
--- NOTE | 2025-06-02 | XR_ITS ---
Examination: Ultrasound-guided needle placement right basilic vein. Dual-lumen central line placement (PICC line). Fluoroscopy AP chest, portable, single view Exam date and time:June 02, 2025 1420 hours INDICATIONS: Need for long-term intravenous antibiotic therapy A timeout was completed verifying correct patient, procedure, site, positioning Informed consent provided Technique: The patient's site was prepped and draped in sterile fashion. Maximum Sterile Barrier Technique used including cap, mask, sterile gown, sterile gloves, and sterile full body drape. If ultrasound technique used: sterile gel and sterile probe covers. Hand Hygiene performed using proper scrub, soap and water, or alcohol-based hand rub. Ultrasound utilized to confirm patency of the right basilic vein Utilizing ultrasonographic guidance successful 21-gauge needle puncture into the right basilic vein Ultrasound images recorded and stored. 5 cc 1% lidocaine administered for local anesthetic. Successful micropuncture with a 21-gauge needle is performed. 0.18 wire guide is then introduced into the SVC under fluoroscopic guidance. Dual-lumen catheter dilator is then introduced, followed by the catheter in the SVC and proper position under fluoroscopic guidance. Successful aspiration of blood and flushing with heparinized saline is then performed in the 2 venous limbs. The catheter sutured in place. Findings: Under fluoroscopy, the tip of the catheter is in good position in the vena cava. Portable chest x-ray, post line placement is ordered. Estimated blood loss 3 cc The patient tolerated the procedure well and was in stable and satisfactory condition at completion of the procedure Impression: Successful ultrasound-guided needle placement right basilic vein Successful placement of dual lumen central line, percutaneous Fluoroscopy 0.1 minute radiation dose 0.42 milligray 1 spot fluoroscopic chest film. AP chest completion procedure demonstrates satisfactory position central line. May use central line.
[2025-06-02] MEDS: SODIUM CHLORIDE 1 GM TABLET 3 GM PO ×2 (05:13→15:25)
[2025-06-02 06:27] LABS: Basophils # (Auto) 0.0 Thou/mm3 (0.0-0.2); Basophils % (Auto) 0 % (0-2.5); Eosinophils # (Auto) 0.0 Thou/mm3 (0.0-0.5); Eosinophils % (Auto) 1 % (0-10); Hematocrit 25.3 % (36.0-46.0); Hemoglobin 8.9 g/dL (12.0-16.0); Immature Granulocytes Auto 0.00 Thou/mm3 (0.00-0.00); Lymphocytes # (Auto) 1.0 Thou/mm3 (1.0-4.8); Lymphocytes % (Auto) 37 % (10-50); Mean Corpuscular HGB Conc 35.2 g/dl (31.0-37.0); Mean Corpuscular Hemoglobin 31.4 pg (25.0-35.0); Mean Corpuscular Volume 89 fL (80-100); Monocytes # (Auto) 0.3 Thou/mm3 (0.0-0.8); Monocytes % (Auto) 12 % (0-12); Neutrophils # (Auto) 1.4 Thou/mm3 (1.8-7.7); Neutrophils % (Auto) 49 % (37-80); Nucleated Red Blood Cell # 0.00 Thou/mm3 (0.00-0.00); Nucleated Red Blood Cell % 0 /100 WBC (0); Platelet Count 204 Thou/mm3 (140-440); RDW Standard Deviation 49.0 fL (36.4-46.3); Red Blood Count 2.83 Miln/mm3 (4.00-5.20)
[2025-06-02 06:45] LABS: Alanine Aminotransferase 35 U/L (10-49); Albumin, Serum 3.9 gm/dL (3.5-5.0); Albumin/Globulin Ratio 1.5 (1.2-2.2); Alkaline Phosphatase 71 U/L (46-116); Anion Gap 11 (7-16); Aspartate Amino Transferase 30 U/L (0-34); BUN/Creatinine Ratio 28 Ratio (12-20); Bilirubin,Total 0.4 mg/dL (0.3-1.2); Blood Urea Nitrogen 14 mg/dL (9-23); Calcium 9.1 mg/dL (8.3-10.6); Calcium (Corrected) 9.2 mg/dL (8.5-10.1); Carbon Dioxide 22.4 mMol/L (20.0-31.0); Chloride 105 mMol/L (98-107); Creatinine (Component) 0.5 mg/dL (0.6-1.3); Estimated Creatinine Clearance 101.7 mL/min (>60); Globulin 2.6 gm/dL (2.3-3.5); Glucose 99 mg/dL (74-106); Magnesium 1.9 mg/dL (1.6-2.6); Osmolality,Calculated 276 (275-295); Phosphorous 3.3 mg/dL (2.4-5.1); Potassium 3.8 mMol/L (3.4-5.1); Sodium 138 mMol/L (136-145); Total Protein 6.5 gm/dL (5.7-8.2); eGFR > 60 See Note
[2025-06-02 06:53] LABS: White Blood Count 2.8 Thou/mm3 (3.6-11.0)
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
[2025-06-02] MEDS: POLYETHYLENE GLYCOL 17 GM PACKET PO (09:23)
[2025-06-02] MEDS: ENOXAPARIN SOD INJ 40 MG/0.4 ML SYRINGE SC (09:23)
[2025-06-02] MEDS: POTASSIUM CHLORIDE 10% 20 MEQ/15 ML UDC PO (09:24)
--- NOTE | 2025-06-02 09:33 | PC.IP ---
Pt.'s partner inquired about where he can be tested for syphilis. Provided the following resources: 1. [facility] HIV Services and Resources pamphlet; 2. Printed information: [facility] in [place], [place] ; 3. Printed information: [facility] in [place] ; 4. [facility] phone number for general information or questions regarding STIs (syphilis and gonorrhea).
[2025-06-02] MEDS: Vancomycin Inj 1,000 MG in SODIUM CHLORIDE 0.9% 250 ML 250 ML 150 MG IV (11:09)
--- NOTE | 2025-06-02 11:11 | PC.SS ---
SS was informed by bedside nurse pt removed her PICC line. SS has spoken to Kelsi form [facility] who states she has received insurance authorization. Kelsi is aware pt is homeless and is unable to stay with her aunt. Per Kelsi she will have SS from their facility follow up with pt. Pt will d/c to [facility] once she has PICC line for the IV antibiotic.
[2025-06-02 11:34] LABS: INR 1.0 (0.9-1.3); Partial Thromboplastin Time 26.4 Seconds (22.0-36.0); Prothrombin Time 11.0 Seconds (9.0-12.2)
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
[2025-06-02] MEDS: HEPARIN SOD LOCK SYR 100 UNIT/ML 500 UNIT STFIELD (14:30)
[2025-06-02] MEDS: LIDOCAINE INJ PF 1% 30 ML VIAL 6 ML INFL (14:51)
--- NOTE | 2025-06-02 15:44 | PC.SS ---
Addendum entered by SHAINA Spivey 06/02/25 16:41: Patient's aunt Nathanael was updated was made aware by voicemial. SNF staff was updated on transport time. Addendum entered by SHAINA Spivey 06/02/25 16:37: [facility] ETA is 1999. REMIGIO Kennedy is aware. Original Note: Notified Dr. Sandy that dc orders are needed as patient has insurance authorization for SNF. [facility] transport reference number: [id number]. Pending ETA for transport.
--- NOTE | 2025-06-02 18:10 | PC.NURSE ---
Attempt to call report to [facility] for 2 hours, no answer, LOUIS silverman is contacting the facility
--- NOTE | 2025-06-02 18:31 | PC.NURSE ---
called Spoke to Jed at [facility] and gave Report
== END 2025-06-02 20:33 | disposition skilled nursing facility (03) | DRG 113 ==
LOC: S2NX 05-29 06:51 → S3SX 05-30 23:14
PROVIDERS: Student in an Organized Health Care Education/Training Program; Admitting Provider Internal Medicine; Visit Provider Internal Medicine
DX: J01.10 Acute frontal sinusitis, unspecified (principal); E44.0 Moderate protein-calorie malnutrition; Z68.21 Body mass index [BMI] 21.0-21.9, adult; G04.90 Encephalitis and encephalomyelitis, unspecified; B19.20 Unspecified viral hepatitis C without hepatic coma; E53.8 Deficiency of other specified B group vitamins; E87.1 Hypo-osmolality and hyponatremia; Z66 Do not resuscitate; B95.62 Methicillin resistant Staphylococcus aureus infection as the cause of diseases classified elsewhere; Z86.61 Personal history of infections of the central nervous system; Z91.81 History of falling; B01.11 Varicella encephalitis and encephalomyelitis; A52.3 Neurosyphilis, unspecified
CPT/HCPCS: 36415; 80053; 80202; 83735; 84100; 85025; 85610; 85730; 87081; 93225; 97163; A4216; C1751; C1894; J1642; J1650; J2540; J3370; J3373; J3420; J3475; J3490; J7050; A9270